=== PATIENT | male | born 1995 | race Caucasian/White ===

== ENCOUNTER 2017-04-09 21:35 | Emergency (ER) | payer OTHER ==
[2017-04-09] MEDS: LEVETIRACETAM 1000 MG (PMX) 100 ML IVPB (23:39)
[2017-04-10 00:12] LABS: PHENYTOIN (DILANTIN) 7.9 ug/ml (10.0-20.0)
== END 2017-04-10 00:53 | disposition home or self-care (01) ==
LOC: E/R 04-10 00:53
DX: G40.909 Epilepsy, unspecified, not intractable, without status epilepticus (principal); R40.2142 Coma scale, eyes open, spontaneous, at arrival to emergency department; R40.2362 Coma scale, best motor response, obeys commands, at arrival to emergency department; R40.2252 Coma scale, best verbal response, oriented, at arrival to emergency department; I10 Essential (primary) hypertension; F84.0 Autistic disorder
CPT/HCPCS: 80185; 96374; 99284-25

== ENCOUNTER 2017-07-29 14:43 | Emergency (ER) | payer OTHER, MEDICAID ==
[2017-07-29] MEDS ORDERED: LACTATED RINGER'S 1,000 ML IV (15:07)
[2017-07-29] MEDS ORDERED: LEVETIRACETAM 1000 MG (PMX) 100 ML IVPB (15:30)
[2017-07-29 15:41] LABS: ADD UMIC NO; UR ASCORBIC ACID NEGATIVE (NEGATIVE); UR BILIRUBIN (Dip) NEGATIVE (NEGATIVE); UR BLOOD (Dip) NEGATIVE (NEGATIVE); UR CLARITY CLEAR (CLEAR); UR COLOR YELLOW (YELLOW); UR GLUCOSE (Dip) NEGATIVE (NEGATIVE); UR KETONES (Dip) NEGATIVE (NEGATIVE); UR LEUKOCYTE ESTERASE (Dip) NEGATIVE Leu/ul (NEGATIVE); UR NITRITE (Dip) NEGATIVE (NEGATIVE); UR SPECIFIC GRAVITY (Dip) 1.013 (1.003-1.030); UR TOTAL PROTEIN (Dip) NEGATIVE (NEGATIVE); UR UROBILINOGEN (Dip) 1+ mg/dL (NEGATIVE)
[2017-07-29 16:06] LABS: BARBITURATES Positive (NEGATIVE); OPIATES Negative (NEGATIVE)
[2017-07-29 16:07] LABS: AMPHETAMINE/METHAMPHETAMINE Negative (NEGATIVE); BENZODIAZEPINES Negative (NEGATIVE); CANNABINOIDS Positive (NEGATIVE); COCAINE Negative (NEGATIVE)
== END 2017-07-29 15:34 | disposition left against medical advice (07) ==
LOC: E/R 14:43
DX: F19.239 Other psychoactive substance dependence with withdrawal, unspecified (principal); R40.2252 Coma scale, best verbal response, oriented, at arrival to emergency department; F12.20 Cannabis dependence, uncomplicated; I10 Essential (primary) hypertension; F84.0 Autistic disorder; F17.210 Nicotine dependence, cigarettes, uncomplicated; R40.2142 Coma scale, eyes open, spontaneous, at arrival to emergency department; R40.2362 Coma scale, best motor response, obeys commands, at arrival to emergency department; Z76.5 Malingerer [conscious simulation]
CPT/HCPCS: 80307; 81003; 99284-25

== ENCOUNTER 2017-09-03 02:39 | Emergency (ER) | payer OTHER ==
[2017-09-03] MEDS: NALOXONE (0.4 MG/ML) INJ IV (03:03)
[2017-09-03 03:45] LABS: ADD MAN DIFF? NO
[2017-09-03] MEDS: ONDANSETRON 4 MG INJ IV (04:00)
[2017-09-03 04:04] LABS: ALANINE AMINOTRANSFERASE 107 IU/L (13-69); ALBUMIN 5.1 g/dl (3.3-4.9); ALBUMIN/GLOBULIN RATIO 1.59; ALKALINE PHOSPHATASE 59 IU/L (42-121); ANION GAP 18 (8-16); ASPARTATE AMINO TRANSFERASE 54 IU/L (15-46); BILIRUBIN,INDIRECT 1.3 mg/dl (0-1.1); BILIRUBIN,TOTAL 1.3 mg/dl (0.2-1.3); BLOOD UREA NITROGEN 15 mg/dl (7-20); CALCIUM 9.5 mg/dl (8.4-10.2); CARBON DIOXIDE 26 mmol/L (21-31); CHLORIDE 106 mmol/L (97-110); CREATININE 0.89 mg/dl (0.61-1.24); GLUCOSE 114 mg/dl (70-220); POTASSIUM 4.6 mmol/L (3.5-5.1); SODIUM 145 mmol/L (135-144); TOTAL PROTEIN 8.3 g/dl (6.1-8.1)
[2017-09-03 04:07] LABS: ACETAMINOPHEN < 10.0 ug/ml (10.0-30.0); ETHANOL < 10.0 mg/dl; SALICYLATE < 1.0 mg/dl (5.0-30.0)
[2017-09-03 04:11] LABS: WHITE BLOOD COUNT 10.5 10^3/ul (4.8-10.8)
[2017-09-03 04:11] LABS: ABNORMAL IP MESSAGE 1; BASOPHILS % 0.4 % (0.0-2.0); EOSINOPHILS # 0.1 10^3/ul (0.0-0.5); HEMATOCRIT 42.4 % (42.0-52.0); HEMOGLOBIN 13.2 g/dl (14.0-18.0); LYMPHOCYTES # 2.1 10^3/ul (0.8-2.9); MEAN CORPUSCULAR HEMOGLOBIN 20.9 pg (29.0-33.0); MEAN CORPUSCULAR HGB CONC 31.1 g/dl (32.0-37.0); MONOCYTE # 0.7 10^3/ul (0.3-0.9); MONOCYTES % 6.5 % (0.0-11.0); NEUTROPHIL # 7.5 10^3/ul (1.6-7.5); NEUTROPHILS % 71.6 % (39.0-77.0); PLATELET COUNT 229 10^3/UL (140-415); POSITIVE DIFF @See below; RED BLOOD COUNT 6.33 10^6/ul (4.70-6.10)
== END 2017-09-03 05:24 | disposition home or self-care (01) ==
LOC: E/R 02:39
DX: F19.10 Other psychoactive substance abuse, uncomplicated (principal); D64.9 Anemia, unspecified; F84.0 Autistic disorder; I10 Essential (primary) hypertension; R40.2142 Coma scale, eyes open, spontaneous, at arrival to emergency department; R40.2252 Coma scale, best verbal response, oriented, at arrival to emergency department; R40.2362 Coma scale, best motor response, obeys commands, at arrival to emergency department; Z87.891 Personal history of nicotine dependence
CPT/HCPCS: 80053; 80307; 82962; 85025; 96374; 96375; 99284-25